=== PATIENT | male | born 1995 | race Two or more races ===

== ENCOUNTER 2017-07-12 08:46 | Emergency (ER) | payer MEDICAID, OTHER ==
[~2017-07-12] VITALS: Ht 172.7 cm; Wt 67.1 kg
[2017-07-12 08:49] VITALS: BP 135/82
[2017-07-12] MEDS ORDERED: IBUPROFEN 200 MG TABLET ONE (09:23)
[2017-07-12] MEDS ORDERED: IBUPROFEN 200 MG TABLET PO ONE (09:30)
== END 2017-07-12 10:24 | disposition home or self-care (01) ==
LOC: ED 10:16
DX: S80.01XA Contusion of right knee, initial encounter (principal); W21.89XA Striking against or struck by other sports equipment, initial encounter; Y93.89 Activity, other specified; Y92.89 Other specified places as the place of occurrence of the external cause; Y99.8 Other external cause status
CPT/HCPCS: 99284